=== PATIENT | male | born 1960 | race Caucasian/White ===

== ENCOUNTER 2020-12-12 23:59 | Inpatient (IN) | payer OTHER ==
[~2020-12-12] VITALS: Ht 182.9 cm; Wt 74.0 kg
[~2020-12-12 23:59] MED LIST: ALBU8.5H8 INH; ATEN50TA41 PO; ATOR40TA78 PO; BUDE10.2 INH; BUPR100T11 PO; CIPR500T87 PO; DEXT4TAB31 PO; ERGO500017 PO; FURO20TA3 PO; GABA300C10 PO; GUAI200T37 PO; INSU100I13 SC; LACT10SO28 PO; LIPA1CAP4 PO; LISI-170 PO; MAGN420T PO; METF500T17 PO; METH-640 PO; MORP-29 PO; OMEP40CA8 PO; OXYC20OR8 PO; OXYC5CAP2 PO; PRIM50TA PO; THIA100T10 PO; TIOT18CA INH; URSO300C27 PO
--- NOTE | 2020-12-13 00:07 | NUR ---
TRANSFER FROM [facility] FOR N/V AND WEAKNESS, FOUND TO BE IN ARF. PT A/0X4 BUT POOR HISTORIAN. UNSURE WHAT MEDICAL HE HAS OR WHAT MEDS HE TAKES. PT RECEIVED ZOSYN, ZOFRAN, TYLENOL, IV FLUIDS, AND ALBUTERAL TREATMENT AT PREVIOUS FACILITY.
[2020-12-13] MEDS ORDERED: PROMETHAZINE 25 MG/ML, 1ML IM ONE (00:30)
[2020-12-13] MEDS ORDERED: SODIUM CHLORIDE FLUSH 10ML SYR IVF ONE (00:30)
[2020-12-13] MEDS ORDERED: ONDANSETRON 2MG/ML, 2ML ONE (00:37)
--- NOTE | 2020-12-13 00:42 | NUR ---
EKG GIVEN TO DR JOHN. VERBAL ORDER TO START WITH ZOFRAN AND OKAY TO GIVE PHENERGAN LATER IF NEEDED. ORDER REPEATED. DR JOHN TO PLACE ZOFRAN ORDER.
[2020-12-13 00:56] LABS: MEAN CORPUSCULAR HEMOGLOBIN 29.9 pg (27.5-34.5); MEAN PLATELET VOLUME 10.2 fL (7.4-10.4); PLATELET COUNT 190 x10^3/uL (130-400); RED BLOOD COUNT 3.58 x10^6/uL (4.38-5.82); RED CELL DISTRIBUTION WIDTH 15.4 % (9.4-14.8)
[2020-12-13] MEDS ORDERED: ONDANSETRON 2MG/ML, 2ML IVPush ONE (01:00)
[2020-12-13 01:05] LABS: ALANINE AMINOTRANSFERASE 15 U/L (12-78); ALBUMIN 2.6 g/dL (3.4-5.0); CALCIUM 7.9 mg/dL (8.5-10.1); CHLORIDE 101 mmol/L (98-107); CREATININE 5.41 mg/dL (0.7-1.3)
[2020-12-13 01:07] LABS: ALKALINE PHOSPHATASE 99 U/L (45-117); BILIRUBIN,TOTAL 0.3 mg/dL (0.2-1.0); TOTAL PROTEIN 6.8 g/dL (6.4-8.2)
[2020-12-13 01:12] LABS: ANION GAP 22 mmol/L (5-15)
[2020-12-13] MEDS ORDERED: CALCIUM CHLORIDE 10%, 10ML SYR IVPush ONE (01:30)
[2020-12-13] MEDS ORDERED: SODIUM BICARB 8.4%, 50ML SYRINGE IVPush ONE (01:30)
[2020-12-13] MEDS ORDERED: DEXTROSE 50%, 50ML SYRINGE IVPush ONE (01:30)
[2020-12-13] MEDS ORDERED: INSULIN REGULAR 100 UNITS/ML, 3ML VIAL IVPush ONE (01:30)
[2020-12-13] MEDS ORDERED: SODIUM CHLORIDE 0.9% 1,000ML IVBOLUS ONE (01:30)
[2020-12-13] MEDS ORDERED: FUROSEMIDE 40 MG/4 ML IVPush ONE (01:30)
[2020-12-13] MEDS ORDERED: FUROSEMIDE 40 MG/4 ML ONE ×2 (01:39→02:24)
[2020-12-13] MEDS ORDERED: DEXTROSE 50%, 50ML SYRINGE ONE (01:39)
[2020-12-13] MEDS ORDERED: CALCIUM CHLORIDE 10%, 10ML SYR ONE (01:39)
[2020-12-13] MEDS ORDERED: INSULIN SINGLE DOSE, ER ONE (01:40)
[2020-12-13] MEDS ORDERED: SODIUM BICARB 8.4%, 50ML SYRINGE ONE ×2 (01:42→01:52)
[2020-12-13] MEDS ORDERED: PROMETHAZINE 25 MG/ML, 1ML ONE (01:52)
[2020-12-13 01:55] LABS: BAND#(MANUAL) 0.49 x10^3/uL; BANDS%(MANUAL) 2 % (0-7); LYMPH#(MANUAL) 1.97 x10^3/uL (1-3.4); LYMPHS% (MANUAL) 8 % (22-44); SEG#(MANUAL) 22.14 x10^3/uL (1.8-6.8); SEGS% (MANUAL) 90 % (42-75)
[2020-12-13 01:56] LABS: <PLATELET ESTIMATE> ADEQUATE; ANISOCYTOSIS 1+
[2020-12-13 01:57] LABS: LARGE PLATELETS 1+
[2020-12-13] MEDS ORDERED: FUROSEMIDE 40 MG/4 ML IV ONE (02:30)
[2020-12-13] MEDS ORDERED: SODIUM CHLORIDE FLUSH 10ML SYR IVF PRN (02:30)
[2020-12-13] MEDS: HEPARIN 5,000 UNITS/ML, 1ML SQ SCH ×4 (02:30→17:33)
[2020-12-13] MEDS ORDERED: POLYETHYLENE GLYCOL 17 GM PACKET PO PRN (02:30)
[2020-12-13] MEDS ORDERED: HYDROmorphone 2 MG/ML, 1ML IVPush PRN (02:30)
[2020-12-13] MEDS ORDERED: MELATONIN 5 MG TABLET PO PRN (02:30)
--- NOTE | 2020-12-13 03:06 | NUR ---
REPORT GIVEN TO DAMON BARONE. PT AWARE OF NEEDING TO GIVE UA, HAS URINAL AT BEDSIDE
[2020-12-13] MEDS ORDERED: DEXTROSE 4 GM TAB.CHEW PO PRN (03:30)
[2020-12-13] MEDS: INSULIN LISPRO 100 UNITS/ML, PEN SQ-INSULIN SCH ×5 (03:30→21:13)
[2020-12-13] MEDS ORDERED: GLUCAGON 1 MG IM PRN (03:30)
--- NOTE | 2020-12-13 04:50 | NUR ---
REPORT TO MELODY ALL QUESTIONS ADDRESSED.
[2020-12-13 05:31] LABS: MEAN CORPUSCULAR HEMOGLOBIN 29.5 pg (27.5-34.5); MEAN CORPUSCULAR HGB CONC 30.8 g/dL (33.2-36.2); MEAN PLATELET VOLUME 10.2 fL (7.4-10.4); PLATELET COUNT 154 x10^3/uL (130-400); RED BLOOD COUNT 3.36 x10^6/uL (4.38-5.82)
[2020-12-13] MEDS: DEXTROSE 50%, 50ML SYRINGE IVPush PRN ×2 (05:35→06:41)
[2020-12-13 05:40] LABS: ANION GAP 21 mmol/L (5-15); CALCIUM 8.3 mg/dL (8.5-10.1); CHLORIDE 104 mmol/L (98-107); CREATININE 5.27 mg/dL (0.7-1.3)
[2020-12-13 05:42] VITALS: BP 105/65
[2020-12-13] MEDS ORDERED: DEXTROSE 10% 1,000 ML IV SCH (06:00)
[2020-12-13] MEDS: SODIUM ZIRCONIUM CYCLOSILICATE 10 GM PO ONE ×2 (06:09→11:06)
[2020-12-13] MEDS: SODIUM BICARBONATE 8.4% 150 MEQ in DEXTROSE 5% 1,000 ML IV SCH ×2 (06:13→17:33)
[2020-12-13 07:19] LABS: <PLATELET ESTIMATE> ADEQUATE; ANISOCYTOSIS 1+; LARGE PLATELETS 1+; LYMPH#(MANUAL) 2.53 x10^3/uL (1-3.4); LYMPHS% (MANUAL) 11 % (22-44); MONOS#(MANUAL) 0.46 x10^3/uL (0.3-2.7); MONOS% (MANUAL) 2 % (2-9); SEG#(MANUAL) 20.01 x10^3/uL (1.8-6.8); SEGS% (MANUAL) 87 % (42-75)
[2020-12-13 07:23] VITALS: BP 102/65
[2020-12-13] MEDS: SODIUM CHLORIDE FLUSH 10ML SYR IVF SCH ×2 (11:07→21:13)
[2020-12-13 11:23] VITALS: BP 84/49
[2020-12-13 12:11] VITALS: BP 85/47
[2020-12-13 13:02] LABS: ACETONE, SERUM Large (80mg/dL) (Negative)
[2020-12-13 13:09] LABS: ABSOLUTE RETICS # 0.046 x10^6/uL (0.5-1.5); RED BLOOD COUNT 3.02 x10^6/uL (4.38-5.82); RETICULOCYTE COUNT % 1.53 % (0.5-1.5)
[2020-12-13 14:47] VITALS: BP 91/56
[2020-12-13 17:47] LABS: MICROSCOPIC INDICATED
[2020-12-13 20:34] VITALS: BP 90/60
[2020-12-14 00:20] VITALS: BP 97/54
[2020-12-14] MEDS: HEPARIN 5,000 UNITS/ML, 1ML SQ SCH ×3 (01:24→18:25)
[2020-12-14] MEDS: SODIUM BICARBONATE 8.4% 150 MEQ in DEXTROSE 5% 1,000 ML IV SCH ×2 (01:24→12:04)
[2020-12-14] MEDS: ONDANSETRON 2MG/ML, 2ML IVPush PRN (01:50)
[2020-12-14 05:17] LABS: BASOPHILS % (AUTO) 1 % (0-1); EOSINOPHILS % (AUTO) 1 % (1-7); LYMPHOCYTES % (AUTO) 17 % (22-44); MEAN CORPUSCULAR HEMOGLOBIN 30.1 pg (27.5-34.5); MEAN CORPUSCULAR HGB CONC 32.6 g/dL (33.2-36.2); MEAN PLATELET VOLUME 10.4 fL (7.4-10.4); MONOCYTES % (AUTO) 6 % (2-9); NEUTROPHILS % (AUTO) 76 % (42-75); PLATELET COUNT 115 x10^3/uL (130-400); RED BLOOD COUNT 2.98 x10^6/uL (4.38-5.82); RED CELL DISTRIBUTION WIDTH 14.7 % (9.4-14.8)
[2020-12-14 05:34] LABS: ALANINE AMINOTRANSFERASE 12 U/L (12-78); ANION GAP 13 mmol/L (5-15); CALCIUM 6.8 mg/dL (8.5-10.1); CHLORIDE 94 mmol/L (98-107); CREATININE 6.55 mg/dL (0.7-1.3)
[2020-12-14 05:36] LABS: ALKALINE PHOSPHATASE 75 U/L (45-117); BILIRUBIN,TOTAL 0.2 mg/dL (0.2-1.0); TOTAL PROTEIN 5.4 g/dL (6.4-8.2)
[2020-12-14 08:31] VITALS: BP 89/50
[2020-12-14] MEDS: INSULIN LISPRO 100 UNITS/ML, PEN SQ-INSULIN SCH ×4 (09:43→20:34)
[2020-12-14] MEDS: SODIUM CHLORIDE FLUSH 10ML SYR IVF SCH ×2 (09:43→21:00)
[2020-12-14 12:11] VITALS: BP 81/46
[2020-12-14] MEDS ORDERED: SODIUM CHLORIDE 0.9%, 500ML IVBOLUS ONE (12:30)
[2020-12-14 13:34] VITALS: BP 89/50
[2020-12-14 20:00] VITALS: BP 82/41
[2020-12-14 20:02] VITALS: BP 94/60
[2020-12-14] MEDS ORDERED: BENZONATATE 100 MG CAPSULE ONE (22:58)
[2020-12-15 00:19] VITALS: BP 83/50
[2020-12-15] MEDS: HEPARIN 5,000 UNITS/ML, 1ML SQ SCH ×3 (00:50→16:59)
[2020-12-15] MEDS: ACETAMINOPHEN 325 MG TABLET PO PRN (00:50)
[2020-12-15 04:22] LABS: BASOPHILS % (AUTO) 1 % (0-1); EOSINOPHILS % (AUTO) 1 % (1-7); LYMPHOCYTES % (AUTO) 15 % (22-44); MEAN CORPUSCULAR HEMOGLOBIN 30.4 pg (27.5-34.5); MEAN CORPUSCULAR HGB CONC 33.4 g/dL (33.2-36.2); MEAN PLATELET VOLUME 10.4 fL (7.4-10.4); MONOCYTES % (AUTO) 6 % (2-9); NEUTROPHILS % (AUTO) 77 % (42-75); RED BLOOD COUNT 2.87 x10^6/uL (4.38-5.82); RED CELL DISTRIBUTION WIDTH 14.5 % (9.4-14.8)
[2020-12-15 04:27] LABS: ANION GAP 12 mmol/L (5-15); CALCIUM 6.3 mg/dL (8.5-10.1); CHLORIDE 94 mmol/L (98-107)
[2020-12-15 04:32] LABS: ALANINE AMINOTRANSFERASE 11 U/L (12-78); ALKALINE PHOSPHATASE 71 U/L (45-117); BILIRUBIN,TOTAL 0.3 mg/dL (0.2-1.0); CREATININE 7.61 mg/dL (0.7-1.3); TOTAL PROTEIN 5.2 g/dL (6.4-8.2)
[2020-12-15 05:11] LABS: PLATELET COUNT 97 x10^3/uL (130-400)
[2020-12-15 05:12] LABS: ANISOCYTOSIS 1+; OVALOCYTES 1+
[2020-12-15 05:13] LABS: <PLATELET ESTIMATE> DECREASED; LARGE PLATELETS 1+
[2020-12-15] MEDS: ONDANSETRON 2MG/ML, 2ML IVPush PRN (05:45)
[2020-12-15] MEDS: INSULIN LISPRO 100 UNITS/ML, PEN SQ-INSULIN SCH ×4 (07:00→20:34)
[2020-12-15 07:49] VITALS: BP 91/53
[2020-12-15] MEDS: SODIUM CHLORIDE FLUSH 10ML SYR IVF SCH ×2 (08:03→20:34)
[2020-12-15] MEDS: CHOLECALCIFEROL 5,000u TAB PO SCH (08:03)
[2020-12-15 12:53] VITALS: BP 87/63
[2020-12-15] MEDS: CALCIUM ACETATE 667 MG CAPSULE PO SCH ×2 (16:59→20:33)
[2020-12-15 17:31] LABS: CHLORIDE,URINE RANDOM 83 mmol/L; POTASSIUM,URINE RANDOM 12 mmol/L; SODIUM,URINE RANDOM 84 mmol/L
[2020-12-15 19:29] VITALS: BP 91/66
[2020-12-15 21:49] VITALS: BP 122/75
[2020-12-15 22:58] LABS: BASOPHILS % (AUTO) 0 % (0-1); EOSINOPHILS % (AUTO) 2 % (1-7); LYMPHOCYTES % (AUTO) 17 % (22-44); MEAN CORPUSCULAR HEMOGLOBIN 30.4 pg (27.5-34.5); MEAN CORPUSCULAR HGB CONC 33.5 g/dL (33.2-36.2); MEAN PLATELET VOLUME 9.9 fL (7.4-10.4); MONOCYTES % (AUTO) 6 % (2-9); NEUTROPHILS % (AUTO) 74 % (42-75); PLATELET COUNT 109 x10^3/uL (130-400); RED BLOOD COUNT 2.93 x10^6/uL (4.38-5.82); RED CELL DISTRIBUTION WIDTH 14.4 % (9.4-14.8)
[2020-12-15] MEDS: ALBUTEROL HFA 90 MCG/SPRAY INH PRN (23:06)
[2020-12-15 23:10] LABS: ALANINE AMINOTRANSFERASE 11 U/L (12-78); ANION GAP 13 mmol/L (5-15); CALCIUM 6.5 mg/dL (8.5-10.1); CHLORIDE 94 mmol/L (98-107); CREATININE 8.31 mg/dL (0.7-1.3)
[2020-12-15 23:12] LABS: ALKALINE PHOSPHATASE 76 U/L (45-117); BILIRUBIN,TOTAL 0.3 mg/dL (0.2-1.0); TOTAL PROTEIN 5.6 g/dL (6.4-8.2)
[2020-12-16] MEDS: HEPARIN 5,000 UNITS/ML, 1ML SQ SCH ×3 (01:27→17:45)
[2020-12-16 01:51] VITALS: BP 97/51
[2020-12-16] MEDS: ALBUTEROL-IPRATROPIUM MDI INH INH SCH ×4 (03:28→22:07)
[2020-12-16 04:22] LABS: BASOPHILS % (AUTO) 1 % (0-1); EOSINOPHILS % (AUTO) 1 % (1-7); LYMPHOCYTES % (AUTO) 9 % (22-44); MEAN CORPUSCULAR HEMOGLOBIN 30.3 pg (27.5-34.5); MEAN CORPUSCULAR HGB CONC 33.3 g/dL (33.2-36.2); MONOCYTES % (AUTO) 3 % (2-9); NEUTROPHILS % (AUTO) 86 % (42-75); PLATELET COUNT 96 x10^3/uL (130-400); RED BLOOD COUNT 3.21 x10^6/uL (4.38-5.82); RED CELL DISTRIBUTION WIDTH 14.7 % (9.4-14.8)
[2020-12-16 04:35] LABS: ANION GAP 13 mmol/L (5-15); CALCIUM 6.8 mg/dL (8.5-10.1); CHLORIDE 93 mmol/L (98-107); CREATININE 8.31 mg/dL (0.7-1.3)
[2020-12-16 04:53] LABS: ACETONE, SERUM Small (20mg/dL) (Negative)
[2020-12-16 07:23] VITALS: BP 92/57
[2020-12-16] MEDS: CHOLECALCIFEROL 5,000u TAB PO SCH ×2 (09:00→09:32)
[2020-12-16] MEDS: CALCIUM ACETATE 667 MG CAPSULE PO SCH ×4 (09:00→21:55)
[2020-12-16] MEDS: INSULIN LISPRO 100 UNITS/ML, PEN SQ-INSULIN SCH ×4 (09:30→21:55)
[2020-12-16] MEDS: SODIUM CHLORIDE FLUSH 10ML SYR IVF SCH ×2 (09:31→21:55)
[2020-12-16 17:51] VITALS: BP 103/66
[2020-12-16 19:20] VITALS: BP 108/70
[2020-12-17] MEDS: ONDANSETRON 2MG/ML, 2ML IVPush PRN (00:10)
[2020-12-17 01:29] VITALS: BP 112/74
[2020-12-17] MEDS: HEPARIN 5,000 UNITS/ML, 1ML SQ SCH ×3 (02:06→16:21)
[2020-12-17] MEDS: ALBUTEROL HFA 90 MCG/SPRAY INH PRN ×3 (02:57→20:33)
[2020-12-17] MEDS: ALBUTEROL-IPRATROPIUM MDI INH INH SCH ×4 (03:00→20:53)
[2020-12-17 06:49] LABS: ANION GAP 7 mmol/L (5-15); CALCIUM 7.2 mg/dL (8.5-10.1); CHLORIDE 98 mmol/L (98-107); CREATININE 6.05 mg/dL (0.7-1.3)
[2020-12-17 07:54] VITALS: BP 91/52
[2020-12-17] MEDS: CALCIUM ACETATE 667 MG CAPSULE PO SCH ×3 (08:49→20:33)
[2020-12-17] MEDS: SODIUM CHLORIDE FLUSH 10ML SYR IVF SCH ×2 (08:50→20:33)
[2020-12-17] MEDS: CHOLECALCIFEROL 5,000u TAB PO SCH (08:50)
[2020-12-17] MEDS: INSULIN LISPRO 100 UNITS/ML, PEN SQ-INSULIN SCH ×4 (09:01→20:34)
[2020-12-17] MEDS: ACETAMINOPHEN 325 MG TABLET PO PRN (13:25)
[2020-12-17 14:47] LABS: MICROSCOPIC INDICATED
[2020-12-17 16:04] VITALS: BP 129/66
[2020-12-17 19:49] VITALS: BP_SYST 12; BP_SYST 122; BP_DIAS 66
[2020-12-18 00:56] VITALS: BP 116/67
[2020-12-18] MEDS: ALBUTEROL-IPRATROPIUM MDI INH INH SCH ×4 (03:00→20:57)
[2020-12-18] MEDS: HEPARIN 5,000 UNITS/ML, 1ML SQ SCH ×3 (05:14→20:56)
[2020-12-18] MEDS: ALBUTEROL HFA 90 MCG/SPRAY INH PRN ×3 (05:14→21:13)
[2020-12-18 05:34] LABS: BASOPHILS % (AUTO) 1 % (0-1); EOSINOPHILS % (AUTO) 2 % (1-7); LYMPHOCYTES % (AUTO) 25 % (22-44); MEAN CORPUSCULAR HEMOGLOBIN 30.3 pg (27.5-34.5); MEAN CORPUSCULAR HGB CONC 33.2 g/dL (33.2-36.2); MEAN PLATELET VOLUME 9.8 fL (7.4-10.4); MONOCYTES % (AUTO) 6 % (2-9); NEUTROPHILS % (AUTO) 67 % (42-75); PLATELET COUNT 83 x10^3/uL (130-400); RED BLOOD COUNT 2.65 x10^6/uL (4.38-5.82); RED CELL DISTRIBUTION WIDTH 14.9 % (9.4-14.8)
[2020-12-18 05:50] LABS: CHLORIDE 101 mmol/L (98-107)
[2020-12-18 05:54] LABS: ANION GAP 9 mmol/L (5-15); CALCIUM 7.8 mg/dL (8.5-10.1); CREATININE 4.74 mg/dL (0.7-1.3)
[2020-12-18 07:39] VITALS: BP 95/60
[2020-12-18] MEDS: INSULIN LISPRO 100 UNITS/ML, PEN SQ-INSULIN SCH ×4 (08:11→20:56)
[2020-12-18] MEDS: CALCIUM ACETATE 667 MG CAPSULE PO SCH ×3 (09:52→20:56)
[2020-12-18] MEDS: SODIUM CHLORIDE FLUSH 10ML SYR IVF SCH ×2 (09:53→20:57)
[2020-12-18] MEDS: CHOLECALCIFEROL 5,000u TAB PO SCH (09:53)
[2020-12-18 15:26] VITALS: BP 121/73
[2020-12-18 19:11] VITALS: BP 128/79
[2020-12-18] MEDS: ONDANSETRON 2MG/ML, 2ML IVPush PRN (21:06)
[2020-12-19 01:36] VITALS: BP 122/72
[2020-12-19] MEDS: ALBUTEROL HFA 90 MCG/SPRAY INH PRN ×3 (04:04→20:37)
[2020-12-19] MEDS: HEPARIN 5,000 UNITS/ML, 1ML SQ SCH ×3 (04:04→20:36)
[2020-12-19] MEDS: ALBUTEROL-IPRATROPIUM MDI INH INH SCH ×4 (04:04→20:36)
[2020-12-19] MEDS: INSULIN LISPRO 100 UNITS/ML, PEN SQ-INSULIN SCH ×4 (07:00→20:35)
[2020-12-19 08:01] VITALS: BP 144/66
[2020-12-19] MEDS: SODIUM CHLORIDE FLUSH 10ML SYR IVF SCH ×2 (09:22→20:37)
[2020-12-19] MEDS: CHOLECALCIFEROL 5,000u TAB PO SCH (09:22)
[2020-12-19] MEDS: CALCIUM ACETATE 667 MG CAPSULE PO SCH ×3 (09:22→20:35)
[2020-12-19 10:28] LABS: ANION GAP 10 mmol/L (5-15); CHLORIDE 100 mmol/L (98-107); CREATININE 4.84 mg/dL (0.7-1.3)
[2020-12-19 12:36] VITALS: BP 153/79
[2020-12-19 20:26] VITALS: BP 164/80
[2020-12-19] MEDS: LACTULOSE 20 GM/30 ML UDC PO PRN (21:55)
[2020-12-20 01:11] VITALS: BP 147/65
[2020-12-20] MEDS: ALBUTEROL HFA 90 MCG/SPRAY INH PRN ×4 (04:15→20:46)
[2020-12-20] MEDS: HEPARIN 5,000 UNITS/ML, 1ML SQ SCH ×3 (04:15→20:39)
[2020-12-20] MEDS: ALBUTEROL-IPRATROPIUM MDI INH INH SCH ×4 (04:15→20:53)
[2020-12-20] MEDS: ONDANSETRON 2MG/ML, 2ML IVPush PRN (04:37)
[2020-12-20 06:40] LABS: ANION GAP 8 mmol/L (5-15); CALCIUM 8.2 mg/dL (8.5-10.1); CHLORIDE 100 mmol/L (98-107); CREATININE 4.13 mg/dL (0.7-1.3)
[2020-12-20] MEDS: INSULIN LISPRO 100 UNITS/ML, PEN SQ-INSULIN SCH ×4 (07:00→20:48)
[2020-12-20 07:41] VITALS: BP 136/73
[2020-12-20] MEDS: SODIUM CHLORIDE FLUSH 10ML SYR IVF SCH ×2 (09:45→20:41)
[2020-12-20] MEDS: CHOLECALCIFEROL 5,000u TAB PO SCH (09:45)
[2020-12-20] MEDS: CALCIUM ACETATE 667 MG CAPSULE PO SCH ×3 (09:45→20:39)
[2020-12-20] MEDS: LACTULOSE 20 GM/30 ML UDC PO PRN ×2 (12:09→20:42)
[2020-12-20 12:51] VITALS: BP 146/74
[2020-12-20 20:56] VITALS: BP 145/72
[2020-12-21 01:10] VITALS: BP 148/73
[2020-12-21] MEDS: ALBUTEROL HFA 90 MCG/SPRAY INH PRN (04:40)
[2020-12-21] MEDS: HEPARIN 5,000 UNITS/ML, 1ML SQ SCH ×3 (04:41→21:32)
[2020-12-21] MEDS: ALBUTEROL-IPRATROPIUM MDI INH INH SCH ×4 (04:42→21:43)
[2020-12-21 06:44] LABS: BASOPHILS % (AUTO) 1 % (0-1); EOSINOPHILS % (AUTO) 4 % (1-7); LYMPHOCYTES % (AUTO) 26 % (22-44); MEAN CORPUSCULAR HEMOGLOBIN 30.6 pg (27.5-34.5); MEAN CORPUSCULAR HGB CONC 33.6 g/dL (33.2-36.2); MEAN PLATELET VOLUME 8.9 fL (7.4-10.4); MONOCYTES % (AUTO) 8 % (2-9); NEUTROPHILS % (AUTO) 61 % (42-75); PLATELET COUNT 115 x10^3/uL (130-400); RED BLOOD COUNT 2.41 x10^6/uL (4.38-5.82); RED CELL DISTRIBUTION WIDTH 14.8 % (9.4-14.8)
[2020-12-21 06:55] LABS: ANION GAP 6 mmol/L (5-15); CALCIUM 8.4 mg/dL (8.5-10.1); CHLORIDE 104 mmol/L (98-107)
[2020-12-21 06:59] LABS: CREATININE 3.64 mg/dL (0.7-1.3)
[2020-12-21] MEDS: INSULIN LISPRO 100 UNITS/ML, PEN SQ-INSULIN SCH ×4 (07:00→21:33)
[2020-12-21 07:12] VITALS: BP 127/71
[2020-12-21] MEDS: CALCIUM ACETATE 667 MG CAPSULE PO SCH ×3 (09:50→21:43)
[2020-12-21] MEDS: CHOLECALCIFEROL 5,000u TAB PO SCH (09:50)
[2020-12-21] MEDS: SODIUM CHLORIDE FLUSH 10ML SYR IVF SCH ×2 (09:50→21:33)
[2020-12-21 13:10] VITALS: BP 132/67
[2020-12-21 20:39] VITALS: BP 131/71
[2020-12-22] MEDS: ONDANSETRON 2MG/ML, 2ML IVPush PRN (00:24)
[2020-12-22 00:36] VITALS: BP 127/67
[2020-12-22] MEDS: ALBUTEROL-IPRATROPIUM MDI INH INH SCH ×4 (03:49→21:10)
[2020-12-22] MEDS: HEPARIN 5,000 UNITS/ML, 1ML SQ SCH ×3 (05:33→21:10)
[2020-12-22] MEDS: INSULIN LISPRO 100 UNITS/ML, PEN SQ-INSULIN SCH ×4 (07:00→21:12)
[2020-12-22 08:24] VITALS: BP 148/87
[2020-12-22] MEDS: CALCIUM ACETATE 667 MG CAPSULE PO SCH ×2 (10:07→17:53)
[2020-12-22] MEDS: CHOLECALCIFEROL 5,000u TAB PO SCH (10:07)
[2020-12-22] MEDS: SODIUM CHLORIDE FLUSH 10ML SYR IVF SCH ×2 (10:08→21:10)
[2020-12-22 11:09] LABS: ANION GAP 7 mmol/L (5-15); CALCIUM 8.3 mg/dL (8.5-10.1); CHLORIDE 102 mmol/L (98-107)
[2020-12-22 14:11] VITALS: BP 99/62
[2020-12-22 19:40] VITALS: BP 117/65
[2020-12-23 01:51] VITALS: BP 179/91
[2020-12-23] MEDS: niFEDipine ER 30 MG TABLET.ER PO SCH ×2 (02:40→08:56)
[2020-12-23] MEDS: ALBUTEROL-IPRATROPIUM MDI INH INH SCH ×2 (03:00→09:00)
[2020-12-23] MEDS: HEPARIN 5,000 UNITS/ML, 1ML SQ SCH (05:00)
[2020-12-23 05:56] LABS: ANION GAP 5 mmol/L (5-15); CALCIUM 8.2 mg/dL (8.5-10.1); CHLORIDE 100 mmol/L (98-107)
[2020-12-23 05:58] LABS: CREATININE 3.56 mg/dL (0.7-1.3)
[2020-12-23 08:00] VITALS: BP 125/71
[2020-12-23] MEDS: CHOLECALCIFEROL 5,000u TAB PO SCH (08:56)
[2020-12-23] MEDS: CALCIUM ACETATE 667 MG CAPSULE PO SCH (08:56)
[2020-12-23] MEDS: INSULIN LISPRO 100 UNITS/ML, PEN SQ-INSULIN SCH ×2 (08:57→11:55)
[2020-12-23] MEDS: SODIUM CHLORIDE FLUSH 10ML SYR IVF SCH (08:58)
[2020-12-23] MEDS ORDERED: NIFE30TA13 PO (09:01)
[2020-12-23] MEDS ORDERED: MORP-29 PO (09:01)
[2020-12-23] MEDS ORDERED: CALC667C PO (09:01)
[2020-12-23] MEDS ORDERED: CEPH-375 PO (09:32)
== END 2020-12-23 12:35 | disposition home or self-care (01) | DRG 682 ==
LOC: ED 12-13 00:05 → EDIP 12-13 02:45 → 4WST 12-13 05:20
PROVIDERS: ADMIT Internal Medicine; ATTEND Hospitalist
PROC: 02HV33Z Insertion of Infusion Device into Superior Vena Cava, Percutaneous Approach (ICD-10-PCS; principal; 2020-12-16)
PROC: B518ZZA Fluoroscopy of Superior Vena Cava, Guidance (ICD-10-PCS; 2020-12-16)
DX: N17.0 Acute kidney failure with tubular necrosis (principal); J18.9 Pneumonia, unspecified organism; G93.41 Metabolic encephalopathy; E87.2 Acidosis; J44.0 Chronic obstructive pulmonary disease with (acute) lower respiratory infection; E44.0 Moderate protein-calorie malnutrition; E11.649 Type 2 diabetes mellitus with hypoglycemia without coma; E86.0 Dehydration; K52.9 Noninfective gastroenteritis and colitis, unspecified; E87.5 Hyperkalemia; D69.6 Thrombocytopenia, unspecified; D64.9 Anemia, unspecified; G89.29 Other chronic pain; B19.20 Unspecified viral hepatitis C without hepatic coma; E11.65 Type 2 diabetes mellitus with hyperglycemia; F19.10 Other psychoactive substance abuse, uncomplicated; I25.10 Atherosclerotic heart disease of native coronary artery without angina pectoris; I12.9 Hypertensive chronic kidney disease with stage 1 through stage 4 chronic kidney disease, or unspecified chronic kidney disease; E11.22 Type 2 diabetes mellitus with diabetic chronic kidney disease; N18.30 Chronic kidney disease, stage 3 unspecified; K86.89 Other specified diseases of pancreas; E83.51 Hypocalcemia; B96.1 Klebsiella pneumoniae [K. pneumoniae] as the cause of diseases classified elsewhere; F17.200 Nicotine dependence, unspecified, uncomplicated; Z86.73 Personal history of transient ischemic attack (TIA), and cerebral infarction without residual deficits; Z68.22 Body mass index [BMI] 22.0-22.9, adult
CPT/HCPCS: 36415; 36556; 36600; 71045; 76770; 80048; 80053; 81001; 82010; 82306; 82330; 82436; 82550; 82728; 82803; 82962; 83540; 83550; 83605; 83690; 83735; 83935; 83970; 84100; 84133; 84300; 84550; 85025; 85045; 86704; 86706; 87077; 87086; 87186; 87205; 87340; 90935; 93005; 96374; 96375; 99291; G0378; J1644; J1815; J1940; J2405; J7070; J7030; J7040